=== PATIENT | female | born 1955 | race African-American/Black ===

== ENCOUNTER 2017-12-03 23:37 | Inpatient (IN) | payer OTHER ==
[~2017-12-03] VITALS: Ht 165.1 cm; Wt 71.5 kg
--- NOTE | ~2017-12-03 | S ---
[facility] [place] [address] SURGICAL PATH RPT PROCEDURE Name: FANNY REYES Room #: 242-P [facility] IN M.R.#: [id number] Admission: 12/04/17 Date of : 57 Discharge: 12/05/17 Report #: [id number] Path Case #: [id number] PATHOLOGY REPORT COLLECTION DATE: 12/05/2017 RECEIVED DATE: 12/05/2017 SUBMITTING PHYS: Dr. Varsha Bocanegra OTHER PHYS: Dr. Chloe Horn SPECIMEN(S) RECEIVED: A.Peripheral smear * * * * * * * * * * * * FINAL DIAGNOSIS: Peripheral blood smear: - Mild normocytic anemia and mild leukopenia with left-shifted granulocytes (see comment). COMMENT: Overall, the peripheral blood has mild normocytic anemia and mild leukopenia with left-shifted granulocytes. The platelet count is within the normal reference range. Platelet clumps are also noted. The etiology of the findings is unclear based entirely on slide review. Potential causes of normocytic anemia include anemia of chronic disease, treated and/or compensated by mineral deficiencies, acute blood loss, dilutional and primary bone marrow disorders. Potential causes of leukopenia include infections, drug reactions and primary bone marrow disorders. Correlation with clinical history and additional laboratory data is recommended. (CLW:kristin; 12/05/2017) PATHOLOGIST: Meredith Schulz M.D. REPORT ELECTRONICALLY SIGNED BY: Meredith Schulz M.D. DATE/TIME: 12/05/2017 22:17 * * * * * * * * * * * * MICROSCOPIC DESCRIPTION: CBC Data (12/05/17): WBC 2,100 / uL, RBC 3.87, hemoglobin 11.1 g/dL, hematocrit 35.4%, MCV 91.4 fL, MCH 28.6 pg, MCHC 31.3 g/dL, RDW 14.0%. Platelet count 154,000 / uL. Manual WBC differential: segs 45%, bands 20%, lymphs 26%, eos 1%, and metas 8%. Peripheral Blood Smear: Cytomorphological examination of the Wong's stained peripheral blood smear is limited by poor morphology and otherwise confirms the provided data. Red blood cells show mild normocytic anemia and are without significant anisopoikilocytosis. No schistocytes or [facility] [address] [place] [address] SURGICAL PATH RPT PROCEDURE Name: FANNY REYES Room #: 242-P [facility] IN M.R.#: [id number] Admission: 12/04/17 Date of : 57 Discharge: 12/05/17 Report #: [id number] Path Case #: [id number] microspherocytes are seen. White blood cells are mildly decreased in number. They are predominantly segmented neutrophils with reactive changes. There is a left shift with scattered metamyelocytes noted. No blasts or Re rods are seen on scanning. Lymphocytes are predominantly small, round, and mature-appearing with condensed chromatin and scant cytoplasm with admixed large granular lymphocytes and reactive-appearing lymphocytes. Monocytes are mature. Platelets are adequate in number and mainly normal in morphology with rare larger platelets noted. Rare platelet clumps are also seen. GROSS PATHOLOGY: Received are four peripheral blood smears (two Wong stained and two unstained) all labeled, Fanny Reyes CLINICAL HISTORY: This is a 62-year-old woman with anemia and leukopenia. Morphologic review of the peripheral blood smear is requested by the patient's physician. INITIAL CPT CODE(S): A; [place] Professional services performed by [facility] at [facility] [address], [place] [address] Technical services performed by [facility] at [address] [place] [address], [address], [place] [address]. FAX: Genna Tejada [facility] [address] [address] PHONE: [phone] DIRECTOR: Carlos Alberto Banegas M.D. * * * END OF REPORT * * *
--- NOTE | ~2017-12-03 | HC ---
[facility] [place] [address] [place] [address] CONSULTATION Name: JAGDISH COLLINS Room #: 242-P [facility] IN M.R.#: [id number] Admission: 12/04/17 Attend Phys: Chloe Roth Discharge: 12/05/17 Date of : 57 Report #: [id number] THIS REPORT FOR: //name// CC: CHITO Horn DATE OF SERVICE: 12/04/2017 REASON FOR CONSULTATION: Acute kidney injury. HISTORY OF PRESENT ILLNESS: This 62-year-old patient is new to our hospital and hospital system as far as I can tell. She was brought by ambulance late last night before midnight actually to the Emergency Room here with malaise, nausea, vomiting and abdominal pain. She complained of severe obstipation and was noted by EMS to have hypotension with blood pressure recorded 56/28 and heart rate of 150 and this responded to IV fluids with improvement in her vitals. She was evaluated in the Emergency Room and found to have an apparent large bowel obstruction with dilated colon and was managed with oxygen and IV fluids and at some point early this morning while still in the Emergency Room underwent a cardiorespiratory arrest thought to be accompanied by vomiting and aspiration. There was a prolonged difficult resuscitation, transferred to the ICU where upon she has had severe shock requiring multiple pressors and fluids with severe metabolic and lactic acidosis and little in the way of urine output. PAST MEDICAL HISTORY: There is some history of kidney disease, possibly a remote ovarian tumor of some kind, as far as we can tell it was not a cancer. She has a prior history of hypertension, history of marked opioid dependence, chronic pain and implanted epidural pain related catheter and history of avascular necrosis of the femoral head. ALLERGIES: ALLERGIC TO NONSTEROIDALS. FAMILY HISTORY: Unobtainable. SOCIAL HISTORY: Old records apparently were obtained at some point, which included the fact that she is completely estranged from all family members and there is no accountable alliance party to help with decision making. HOME MEDICATIONS: Include lisinopril 40 mg daily, amlodipine 10 mg daily, Flexeril 10 mg t.i.d. p.r.n., Coreg 12.5 mg b.i.d., Synthroid 0.025 mg daily, aspirin 81 mg daily, oxycodone 20 mg t.i.d., furosemide 40 mg daily, spironolactone 25 mg daily. PHYSICAL EXAMINATION: GENERAL: The patient is comatose. She is on hypothermia protocol. She is on hypothermia apparatus and making examination difficult. [address] [address] CONSULTATION Name: JAGDISH COLLINS Room #: 242-P [facility] IN [facility].#: [id number] Admission: 12/04/17 Attend Phys: Chloe Roth Discharge: 12/05/17 Date of : 57 Report #: [id number] HEENT: Pupils are not reactive. NEUROLOGIC: She is again completely comatose. CHEST: I can listen to sounds okay. HEART: Distant. ABDOMEN: Cannot really be examined. EXTREMITIES: Cool, nonedematous and pulses are diminished. LABORATORY DATA: Most recent laboratory data with more pending include hemoglobin of 6.4, white count of 6.2 and platelets of 150. Bands were 17% last night when she first came in and at that point, white count was 15.9, platelets 373. Initial chemistries first was evaluated before midnight last night, include sodium 141, potassium 3.9, chloride 108, bicarbonate 24, creatinine 1.9, BUN 33. LFTs were normal. Most recent chemistries available from 5 hours ago showed a serum CO2 of 16 and potassium of 6.1, creatinine of 2.7, AST of 1234, ALT of only 25, albumin 1.4 and this post arrest. Recent ABG drawn at 2:00 this afternoon include pH 7.045, pCO2 of 29, pO2 247, serum CO2 of 7.8 and lactate of 10. ASSESSMENT AND PLAN: Acute kidney injury. She had severe shock, a very prolonged arrest in the setting of what appeared to be a septic picture superimposed on bowel obstruction, now she is anuric, acidotic. She is on maximal doses of 4 or 5 pressors with a maintained borderline blood pressure and continuing ____ circulation despite copious fluid resuscitation. The difficulty with the case is that trying to perform CRRT or the type of procedure on this patient may be very difficult due to marked hypotension, on the other hand her acidosis is becoming completely refractory and she certainly can survive very long at this rate and I suspect her potassium will be up and her bicarbonate will be much better. She has been ordered to get some IV bicarbonate as well and this may further complicate issues. We will have to try to make some decisions regarding CRRT. We will follow her closely, but her prognosis obviously is grave at this point. <ELECTRONICALLY SIGNED> By: Arnaldo Wahl MD 12/07/17 1141 1512 190 Arnaldo Wahl MD /nt
--- NOTE | ~2017-12-03 | EKG ---
[place] [address] [facility] [place] [address] ELECTROCARDIOGRAM REPORT Name: JAGDISH COLLINS Room #: 242-P ADM IN M.R.#: [id number] Admission: 12/04/17 Attend Phys: Chato Horn MD Discharge: Date of : 57 Report #: [id number] THIS REPORT FOR: //name// [facility] ED Test Date: 2017-12-03 Test Time: 23:55:14 Pat Name: JAGDISH COLLINS Department: Room: 242 Gender: F Public Health Administrator: LAURENT : 1955 Requested By: Shayy House Order Number: [id number] MD: Mario Miller Measurements Intervals [place] Rate: 106 P: 62 MT: 164 QRS: 55 QRSD: 86 T: 260 QT: 276 QTc: 367 Interpretive Statements Sinus tachycardia Probable LVH with secondary repol abnrm No previous ECG available for comparison Electronically Signed On 12-04-2017 13:46:41 CDT by Mario Miller [email or web address] <ELECTRONICALLY SIGNED> By: Mario Miller MD, [facility] 12/04/17 1346 [id number] [id number] Mario Miller MD, FACC /EPI
--- NOTE | ~2017-12-03 | HC ---
[facility] [place] [address] CONSULTATION Name: JAGDISH COLLINS Room #: 242-P [facility] IN ..#: [id number] Admission: 12/04/17 Attend Phys: Chloe Roth Discharge: 12/05/17 Date of : 57 Report #: [id number] THIS REPORT FOR: //name// CC: CHITO Horn DATE OF SERVICE: 12/04/2017 ATTENDING PHYSICIAN: Chato Horn MD CONSULTATION REQUESTED BY: Chloe Roth MD REASON FOR CONSULTATION: Aspiration pneumonia. HISTORY OF PRESENT ILLNESS: The patient is a 62-year-old -British woman admitted through the Emergency Room with a history of malaise, vomiting, abdominal pain and inability to keep anything down. The patient undergoes CT scan of abdomen and pelvis and this revealed large bowel obstruction. The patient then suffered cardiorespiratory arrest, now in the intensive care unit on mechanical ventilator. Consequently, all information is gathered from review of current records, no information besides the one obtained in the Emergency Room. PAST MEDICAL HISTORY: Recent kidney disease diagnosed. MEDICATIONS: She is on lisinopril, amlodipine, cyclobenzaprine, carvedilol, levothyroxine, aspirin, p.r.n. oxycodone, docusate and spironolactone. DRUG ALLERGIES: NONSTEROIDAL ANTI-INFLAMMATORY DRUGS, PENTAZOCINE, IBUPROFEN, DOXYCYCLINE. MEDICATIONS: She is currently on chlorhexidine oral care, famotidine, normal saline 1000 mL every 8 hours, Levophed titration, Zosyn 3.375 grams IV every 6 hours, propofol sedation, p.r.n. acetaminophen, p.r.n. ondansetron, p.r.n. morphine sulfate. PAST SOCIAL HISTORY: Unable to obtain. FAMILY HISTORY: Unable to obtain. REVIEW OF SYSTEMS: Unable to obtain. PHYSICAL EXAMINATION: GENERAL: A well-developed unresponsive woman. VITAL SIGNS: Temperature 100.1, pulse 120, respirations 18, BP 118/72. The patient is intubated on mechanical ventilator. [facility] [address] [place] [address] CONSULTATION Name: JAGDISH COLLINS Room #: 242-P [facility] IN M.R.#: [id number] Admission: 12/04/17 Attend Phys: Chloe Roth Discharge: 12/05/17 Date of : 57 Report #: [id number] HEENMT: Head normocephalic, atraumatic. Pupils dilated, nonresponsive, clouding of lenses. Bilateral arcus cornealis. Mouth: Unable to examine because of orotracheal intubation. NECK: Supple. LUNGS: Basilar crackles during intubation and resuscitation. The patient is said to have large amount of bile colored material aspirated from the lungs. ABDOMEN: Tympanitic, mildly distended and obviously not tender because the patient is unresponsive. PELVIC AND RECTAL: Deferred. EXTREMITIES: No clubbing, cyanosis. NEUROLOGIC: The patient totally unresponsive. LABORATORY DATA: Sodium 142, potassium 4.2, CO2 of 18, BUN 38, creatinine 2.4, albumin 2.3 g/dL. White blood cell count on admission 15,900, today 7500, hemoglobin 12.3 g/dL, platelets 373,000. The admission CBC has revealed 69% segmented neutrophils, 17% bands. ABGs obtained revealed pH 7.97, pCO2 of 61, pO2 100, bicarbonate 15.8, lactate 8.93. This set of gases done on 100% O2. Nasopharyngeal smear negative for influenza A and B. RADIOLOGY EVALUATION: The admission chest x-ray negative. CT scan of abdomen and pelvis has revealed large bowel distention and air fluid levels, fatty liver. Findings on omental fat compatible with peritoneal carcinomatosis. Chronic changes, both lung bases. ASSESSMENT: 1. Status post cardiorespiratory arrest. 2. Aspiration pneumonia. 3. Respiratory failure with mix lactic and metabolic acidosis. 4. Acute kidney injury. Question superimposed on chronic kidney disease. 5. Possible large bowel obstruction, rule out peritoneal carcinomatosis. SUGGESTIONS: Recommend decreased dose of Zosyn to every 8 hours. MRSA screen. If this is positive, we will initiate vancomycin per Dr. Roth. Thank you for requesting our suggestions in the care of your patient. <ELECTRONICALLY SIGNED> By: Jacob Plata MD 12/13/17 1026 1116 1644 Jacob Plata MD /nt
--- NOTE | ~2017-12-03 | 2DMMODE ---
[facility] [place] [address] 2 D/M-MODE ECHOCARDIOGRAM Name: JAGDISH COLLINS Room #: 242-P ADM IN M.R.#: [id number] Admission: 12/04/17 Attend Phys: Chloe Townsend Discharge: Date of : 57 Date of Service: 12/05/17 0854 Report #: [id number] THIS REPORT FOR: //name// APPROVED REPORT Study performed: 12/05/2017 07:57:42 EXAM: Comprehensive 2D, Doppler, and color-flow Echocardiogram Patient Location: ICU Room #: 242 Status: routine BSA: 1.78 HR: 84 bpm BP: 101/76 mmHg Other Information Study Quality: Good Indications Abnormal ECG 2D Dimensions RVDd: 25.56 mm LVEF(%): 20.97 (>50%) IVSd: 12.18 (7-11mm) LVOT Diam: 18.01 (18-24mm) LVDd: 43.14 mm PWd: 12.32 (7-11mm) Ascending Ao: 31.72 (22-36mm) LVDs: 39.06 (25-40mm) Aortic Root: 26.38 mm IVC: 18.00 mm Powell's LVEF: 20.97 % Volumes Left Atrial Volume (Systole) Single Plane 4CH: 71.98 mL Single Plane 2CH: 71.93 mL LA ESV Index: 44.00 mL/m2 Aortic Valve AoV Peak Mukul.: 0.89 m/s AO Peak Gr.: 3.15 mmHg LVOT Max P.01 mmHg LVOT Max V: 0.71 m/s HIEU Vmax: 2.04 cm2 Mitral Valve MV Decel. Time: 137.46 ms MV E Max Mukul.: 1.26 m/s IVRT: 214.53 ms [facility] [place] [address] 2 D/M-MODE ECHOCARDIOGRAM Name: JAGDISH COLLINS Room #: 242-P [facility] IN M.R.#: [id number] Admission: 12/04/17 Attend Phys: Chloe Townsend Discharge: Date of : 57 Date of Service: 12/05/17 0854 Report #: [id number] Pulmonary Valve PV Peak Mukul.: 0.63 m/s PV Peak Gr.: 1.59 mmHg Tricuspid Valve TR Peak Mukul.: 2.09 m/s RAP Estimate: 10.00 mmHg TR Peak Gr.: 17.55 mmHg PA Pressure: 28.00 mmHg Left Ventricle The left ventricle is normal size. Mild concentric left ventricular hypertrophy. Left ventricular systolic function is severely decreased. LVEF is 25%. This study is not technically sufficient to allow evaluation of the LV diastolic function. Right Ventricle The right ventricle is normal size. Right ventricle is hypokinetic. Atria Left atrium is moderately dilated. The right atrium size is normal. Aortic Valve Aortic valve leaflets are mildly thickened. No aortic regurgitation is present. There is no aortic valvular stenosis. Mitral Valve Mitral valve leaflets are moderately thickened. Moderate to moderately severe mitral regurgitation No evidence of mitral valve stenosis. Tricuspid Valve The tricuspid valve is normal in structure. Trace tricuspid regurgitation. PAP is estimated at 28 mmHg. Pulmonic Valve The pulmonary valve is normal in structure. Trace pulmonic regurgitation. Great Vessels The aortic root is normal in size. IVC is normal in size. Pericardium There is no pericardial effusion. [facility] [place] [address] 2 D/M-MODE ECHOCARDIOGRAM Name: JAGDISH COLLINS Room #: 242-P ADM IN .R.#: [id number] Admission: 12/04/17 Attend Phys: Chloe Townsend Discharge: Date of : 57 Date of Service: 12/05/1754 Report #: [id number] <Conclusion> Left ventricular systolic function is severely decreased. LVEF is 25%. Left atrium is moderately dilated. Aortic valve leaflets are mildly thickened. No aortic valvular stenosis or insufficiency. Mitral valve leaflets are moderately thickened. Moderate to moderately severe mitral regurgitation Trace tricuspid regurgitation. Pulmonary artery pressure estimated at 28 mmHg. There is no pericardial effusion. <ELECTRONICALLY SIGNED> By: Mario Miller MD, [facility] 12/05/1754 0854 Mario Miller MD, FACC /INF
--- NOTE | ~2017-12-03 | EKG ---
[place] [address] [facility] [place] [address] ELECTROCARDIOGRAM REPORT Name: JAGDISH COLLINS Room #: 242-P ADM IN M.R.#: [id number] Admission: 12/04/17 Attend Phys: Chloe Roth Discharge: Date of : 57 Report #: [id number] THIS REPORT FOR: //name// [facility] Test Date: 2017-12-05 Test Time: 07:23:38 Pat Name: JAGDISH COLLINS Department: Room: 242 Gender: F Dry Ice Maker: Bhupinder WARREN : 1955 Requested By: Arnaldo Parks Order Number: [id number] MD: Mario Miller Measurements Intervals [place] Rate: 85 P: 40 FL: 172 QRS: 32 QRSD: 150 T: 202 QT: 449 QTc: 534 Interpretive Statements Sinus rhythm Left bundle branch block Compared to ECG 12/03/2017 23:55:14 Left bundle branch block is now present Sinus tachycardia no longer present Electronically Signed On 12-05-2017 8:32:23 CDT by Mario Miller [email or web address] <ELECTRONICALLY SIGNED> By: Mario Miller MD, [facility] 12/05/17 0832 0723 0723 Mario Miller MD, [facility] /EPI
--- NOTE | ~2017-12-03 | HC ---
[facility] [place] [address] CONSULTATION Name: JAGDISH COLLINS Room #: 242-P [facility] IN M.R.#: [id number] Admission: 12/04/17 Attend Phys: Chloe Roth Discharge: 12/05/17 Date of : 57 Report #: [id number] THIS REPORT FOR: //name// CC: CHITO Roth DATE OF SERVICE: 12/05/2017 HISTORY OF PRESENT ILLNESS: The patient is a 62-year-old female patient who was seen last night as well as this morning. This patient's Neurology consultation was requested to evaluate the patient for hypoxic encephalopathy. This patient has numerous notes in the chart from multiple physicians. She presented with GI symptom and subsequently had a cardiopulmonary arrest. She is unresponsive and according to the nurses, she is not on any sedation. REVIEW OF SYSTEMS: Indicate that she has a prior history of ovarian tumor. When she came to Emergency Room, it looks like she had hypotension. Now, the patient is unresponsive. No seizure activity has been noticed. No family was there last night and no family is there now. Nurses tell me the patient is on maximum pressor. She has shock liver, her kidney function is down, troponin is high. I carried out 14-point review of systems from the records and it is significant as described above. PAST MEDICAL HISTORY: Positive for ovarian tumor. FAMILY HISTORY: Unavailable. SOCIAL HISTORY: Unavailable because no family member is here. From the record, it looks like there is no history of alcohol or tobacco abuse. PHYSICAL EXAMINATION: Examination yesterday and today was limited. She has no response of any kind. Pupils are dilated, but may be minimally reactive to the night last night, I did not see much reaction this morning, even the last night reaction was questionable. She has no doll's eye movement. She is not stable enough to go for any testing. She is moderately well-built individual. She is requiring maximum pressor support. She is intubated and she is on vent. Blood pressure is 120/87, temperature is 32.9. LABORATORY DATA: Indicate a white count of 3.8, platelet count is 138 and she has numerous blood abnormality including liver and kidney. 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 It will require some time to fully prognosticate her. We will try to warm up this patient this evening and get an EEG done tomorrow morning, then we need to decide whether the patient is fit to go for CT scan or not. [facility] [address] [place] [address] CONSULTATION Name: JAGDISH COLLINS Room #: 242-P [facility]#: [id number] Admission: 12/04/17 Attend Phys: Chloe Roth Discharge: 12/05/17 Date of : 57 Report #: [id number] RECOMMENDATIONS: 1. We will get an EEG done once the patient is warmed, probably tomorrow morning. 2. Sometime along the line, would like to get the patient a noncontrast CT of the head. 3. Further workup and prognostication will depend upon the above testing. Thank you very much for this referral and we will follow the patient along with you. <ELECTRONICALLY SIGNED> By: Tariq Pickard MD 12/15/17 1355 1622 1803 Tariq Pickard MD /nt
--- NOTE | ~2017-12-03 | HC ---
[facility] [place] [address] CONSULTATION Name: JAGDISH COLLINS Room #: 242-P [facility] IN M.R.#: [id number] Admission: 12/04/17 Attend Phys: Chloe Roth Discharge: 12/05/17 Date of : 57 Report #: [id number] THIS REPORT FOR: //name// CC: CHITO Horn REASON FOR CONSULTATION: The patient is a 62-year-old woman with evidence of large bowel obstruction versus constipation and ileus. HISTORY OF PRESENT ILLNESS: This patient is seen in the Intensive Care Unit. She is currently poorly responsive, intubated and on a ventilator. I am unable to obtain any history whatsoever from the patient. The patient presented to the Emergency Room last evening. She presented with complaints of malaise, vomiting, abdominal pain and intolerance to oral intake. She also apparently reported she has not had a bowel movement in 2 weeks. She has a history of chronic kidney disease, but reported she does not require dialysis. According to the Emergency Room note, she denied fever, weakness or dizziness. She did report to the Emergency Room that she had a large ovarian tumor removed in about 1999 and reported that it was benign. There were no other abdominal surgeries according to the ER note. Upon EMS arrival to her home, she had a blood pressure 56/20 with a heart rate of 151. She was given IV fluid en route. Oxygen was given as well. She underwent evaluation which included a CT abdomen and pelvis. She is known to have a large amount of stool in her colon with proximal colon dilated up to 9 cm. There is an abrupt change in the mid sigmoid colon. There is a question of "early peritoneal carcinomatosis." A small amount of ascites was noted as well. She also had laboratory studies and she initially had a white count of 15.9 with hemoglobin 12.8, platelet count 373,000. INR is 1.1. Chemistry revealed sodium 141. Her potassium was initially 3.9. Carbon dioxide was 24, creatinine was 1.9 and BUN was 33. Bilirubin was 0.9, AST was initially 11, but since her event this morning, it has climbed at 1234, ALT was 14 and on repeat was 25, alkaline phosphatase of 192 which has risen to 263. Albumin was initially 2.3 and has dropped to 1.4, lipase was normal. Her procalcitonin was elevated at 16.23. The patient was found today to be nonresponsive, pulse was lost and CPR was initiated. She was resuscitated, intubated and brought to the Intensive Care Unit. She is currently in Intensive Care Unit. She is hypotensive with systolic blood pressures in the 60s. I am told that a KUB was just done and there was no evidence of free air. The report is not yet available in the computer system. She has been seen by Dr. Doherty who felt that she was not a candidate for surgical intervention at this time. There was a question of "decompression" with flexible sigmoidoscopy." [address] [address] CONSULTATION Name: JAGDISH COLLINS Room #: 242-P [facility] IN M.R.#: [id number] Admission: 12/04/17 Attend Phys: Chloe Roth Discharge: 12/05/17 Date of : 57 Report #: [id number] PAST MEDICAL HISTORY: Obtained from the medical records includes chronic kidney disease, high blood pressure, benign ovarian tumor resected, knee surgery, apparently back spasms as well. ALLERGIES: Reported allergies include NONSTEROIDALS, PENTAZOCINE, IBUPROFEN and DOXYCYCLINE. HOME MEDICINES: Listed include amlodipine, aspirin, Coreg, Flexeril, docusate, furosemide, levothyroxine, lisinopril, oxycodone, and Aldactone. FAMILY HISTORY: No family available, unknown. SOCIAL HISTORY: Unknown. REVIEW OF SYSTEMS: Unable to obtain as the patient is not able to respond at this time. PHYSICAL EXAMINATION: GENERAL: The patient is a well-developed, well-nourished -[place] woman. She is currently intubated in the Intensive Care Unit. She is not restless at this time. VITAL SIGNS: Currently blood pressure systolic in the 60s, low-grade temperature to 100.0 earlier today. HEENT: Sclerae anicteric. She is intubated orally. NECK: Supple. CHEST: Clear anteriorly. HEART: Tachycardic, S1, S2, soft murmur. ABDOMEN: Somewhat full, but it is not tight or rigid, is soft in all quadrants. I did not appreciate hepatosplenomegaly. Occasional bowel sound is heard. RECTAL: Not done. EXTREMITIES: Without cyanosis, clubbing, edema. ASSESSMENT: 1. Dilated colon, questionably chronic versus acute, benign abdomen at this time. 2. Cardiac arrest, resuscitated. 3. Respiratory failure, on ventilator. 4. Abnormal liver function studies consistent with shock liver. 5. History of benign ovarian tumor with questionable early peritoneal carcinomatosis. 6. Chronic kidney disease. 7. Chronic constipation. 8. High blood pressure. COMMENT: The patient is critically ill at this point in time. She is hypotensive and pressors are being started. Overall, her abdominal exam is [facility] [address] [place] [address] CONSULTATION Name: JAGDISH COLLINS Room #: 242-P [facility] IN M.R.#: [id number] Admission: 12/04/17 Attend Phys: Chloe Roth Discharge: 12/05/17 Date of : 57 Report #: [id number] relatively benign. I do not see the role for attempt at decompression in her colon at this point. RECOMMENDATIONS: 1. Continue ICU care. 2. Continue NG suctioning. 3. Monitor liver function studies as well as other labs. 4. Continue to monitor abdomen and if needed in the clinical situation allows, consider flexible sigmoidoscopy to decompress the colon, but at this point in time, the patient is too unstable for that examination. <ELECTRONICALLY SIGNED> By: Arsenio Killian MD 12/08/17 1334 1301 1815 Arsenio Killian MD /nt
--- NOTE | ~2017-12-03 | HC ---
[facility] [place] [address] CONSULTATION Name: JAGDISH COLLINS Room #: 242-P [facility] IN M.R.#: [id number] Admission: 12/04/17 Attend Phys: Chloe Roth Discharge: 12/05/17 Date of : 57 Report #: [id number] THIS REPORT FOR: //name// CC: CHITO Horn DATE OF SERVICE: 12/04/2017 CARDIOLOGY CONSULT HISTORY OF PRESENT ILLNESS: The patient is a 62-year-old female who was admitted last night to the Emergency Room. She apparently has a history of some chronic abdominal pain, abdominal distention and obstipation with no bowel movement despite various measures for a couple of weeks. Review of the records is that she is now intubated after a code blue this morning. Apparently, did not lose a pulse and then became PEA and subsequently intubated. Severely anemic with a hemoglobin of 6 and being transfused now currently. Also requiring maximal dose pressors. There is no family as apparently there is a drug and alcohol abuse issue and she has been estranged from all family members. I am not really able to obtain any other history with the exception of there is from the records a history of ovarian cancer and this is felt possibly to be some recurrence, neoplastic or inflammatory stricture of the sigmoid colon. This is consistent with a peritoneal adhesion. Also has a history of avascular necrosis, some tachycardia, hypertension, perhaps some heart failure based on her medications. Her reported home meds were Zestril 40, amlodipine 10, Flexeril 10, Coreg 12.5 b.i.d., levothyroxine, baby aspirin, oxycodone, Lasix and Aldactone 25. One of the records suggests she is followed by Cardiology. We do not have those records. ADDITIONAL PAST MEDICAL HISTORY: Positive for some chronic kidney disease and severe back pain, back spasm and knee surgery. SOCIAL HISTORY: Apparently estranged from the family due to alcohol, tobacco and drug abuse, not currently smoking. REVIEW OF SYSTEMS: Not obtainable. FAMILY HISTORY: Not obtainable. Her EKG pre-code was exhibiting sinus rhythm, LVH. I will obtain an EKG. LABORATORY DATA: Potassium is 4.1, sodium 143, creatinine is 3.0, came in at 1.9, glucose 120s. Lipase elevated, SGOT 1234, alkaline phosphatase 263. Mag 2.7. Troponin 0.04, negative x 2. BNP 1800. H and H 6.4 and 23.1, white count 6.2[place] [address] CONSULTATION Name: JAGDISH COLLINS Room #: [facility] IN [facility].#: [id number] Admission: 12/04/17 Attend Phys: Chloe Roth Discharge: 12/05/17 Date of : 57 Report #: [id number] PHYSICAL EXAMINATION: GENERAL: She is not responsive. She is intubated. She is on 4 pressors and receiving a unit of blood, vasopressin, dopamine, Levophed and epinephrine. Vasopressin has just been discontinued with a pressure of 120s, pulse is 80s. There appears to be sinus. HEENT: Eyes, no xanthelasmas. Pharynx is dry mucous membranes. She is intubated. NECK: Has preserved upstrokes. LUNGS: Clear anteriorly. CARDIAC: S1, S2. There is an S4 noted. ABDOMEN: Slightly distended. EXTREMITIES: There is a trace of edema. I cannot palpate the distal pulses. NEUROLOGIC: She is unresponsive. She is not being sedated. She is status post code this a.m. <ELECTRONICALLY SIGNED> By: Arnaldo Parks MD, FACC 12/08/17 1539 1843 [id number] Arnaldo Parks MD, FACC /nt
--- NOTE | ~2017-12-03 | HC ---
[facility] [place] [address] CONSULTATION Name: JAGDISH COLLINS Room #: 242-P [facility] IN M.R.#: [id number] Admission: 12/04/17 Attend Phys: Chloe Roth Discharge: 12/05/17 Date of : 57 Report #: [id number] THIS REPORT FOR: //name// CC: CHITO Horn DATE OF SERVICE: 12/04/2017 ADDENDUM ASSESSMENT: 1. Status post code blue this a.m. with emergent intubation. 2. 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 3. Hypotension secondary to above. 4. Acute on chronic renal failure. 5. History of suspected coronary artery disease or cardiomyopathy by current medications, (although I do not have those records). 6. Severe acute blood loss anemia, hemoglobin is 6.4. RECOMMENDATIONS AND PLAN: We will obtain EKG. We will repeat an echo in the morning. We will continue with pressor support. This situation does not look favorable. There is no family that apparently, she is estranged from all family members. We are continuing on with full supportive measures at this time. Transfusion 2 units, we will obtain. It does not look to be necessary ischemic in nature, would be helpful to get at least cardiac records from , although I suspect there is some sort of underlying cardiomyopathy, possibly hypertensive cardiomyopathy based on the medications and/or underlying ischemia. I will continue to follow with you. We will deal with pressors and wean slowly as tolerated. Urine output is slightly increased, but certainly was very marginal. Other consultants are on this case in addition. We will follow with you. <ELECTRONICALLY SIGNED> By: Arnaldo Parks MD, FACC 12/08/17 1539 1846 [id number] Arnaldo Parks MD, FACC /nt
[~2017-12-03 23:37] MED LIST: ASPIRIN81 M2; DIAZEPAM 10 MG10 M1; FERROUS SULFAT325 M1; LEVAQUIN 750 M750 MG; LEVOTHYROXIN0.025 MG; NORVASC10 MG; OXYCODONE HCL20 M1 PO; POTASSIUM20 PO; PROTONIX 20 MG20 M1; VITAMIN D400 UNI1; VITAMINC500
[2017-12-03 23:38] VITALS: BP 117/68
[2017-12-03 23:54] LABS: HEMOGLOBIN 12.8 gm/dL (12.0-15.0); MCH 28.3 pg (26.0-34.0); MCV 88.5 fL (80.0-100.0); PLATELET COUNT 373 thou/uL (150-400); RBC 4.52 mil/uL (4.20-5.00); RDW 13.4 % (10.5-14.5); WBC 15.9 thou/uL (4.0-11.0)
[2017-12-04] VITALS (116 sets, daily range): BP systolic 46–163; BP diastolic 17–133
[2017-12-04 00:04] LABS: ANION GAP 9 mmol/L (7-16); BUN 33 mg/dL (7-18); CALCIUM 8.7 mg/dL (8.5-10.1); CHLORIDE 108 mmol/L (98-107); CO2 24 mmol/L (21-32); CREATININE 1.9 mg/dL (0.6-1.0); GLUCOSE 141 mg/dL (74-106); POTASSIUM 3.9 mmol/L (3.5-5.1); SODIUM 141 mmol/L (136-145)
[2017-12-04 00:13] LABS: ALBUMIN 2.3 g/dL (3.4-5.0); DIRECT BILIRUBIN 0.2 mg/dL (<0.1-0.3); LIPASE 71 U/L (73-393); MAGNESIUM 2.4 mg/dL (1.8-2.4); SGOT 16 U/L (15-37); TOTAL BILIRUBIN 0.7 mg/dL (<0.1-1.0); TOTAL PROTEIN 5.9 g/dL (6.4-8.2); TROPONIN-I < 0.04 ng/mL (<0.06)
[2017-12-04 00:15] LABS: SGPT < 6 U/L (30-65)
[2017-12-04 00:18] LABS: ABSOLUTE NEUTROPHILS 13.7 thou/uL (1.4-8.2)
[2017-12-04] MEDS ORDERED: LISINOPRIL40 MG PO (00:45)
[2017-12-04] MEDS ORDERED: AMLODIPINE BESY10 MG PO (00:46)
[2017-12-04] MEDS ORDERED: FLEXERIL PO (00:47)
[2017-12-04] MEDS ORDERED: CARVEDILOL12.5 MG PO (00:48)
[2017-12-04] MEDS ORDERED: COLACE100 MG PO (00:50)
[2017-12-04] MEDS ORDERED: LASIX 40 MG TAB40 M2 PO (00:52)
[2017-12-04] MEDS ORDERED: ALDACTONE25 MG PO (00:53)
[2017-12-04 06:46] LABS: HEMATOCRIT 39.2 % (37.0-47.0); HEMOGLOBIN 12.3 gm/dL (12.0-15.0); MCH 28.3 pg (26.0-34.0); MCHC 31.3 g/dL (28.0-37.0); MCV 90.3 fL (80.0-100.0); RBC 4.34 mil/uL (4.20-5.00); WBC 7.5 thou/uL (4.0-11.0)
[2017-12-04 07:02] LABS: CALCIUM 8.2 mg/dL (8.5-10.1); CREATININE 2.4 mg/dL (0.6-1.0); POTASSIUM 4.2 mmol/L (3.5-5.1)
[2017-12-04 07:03] LABS: INR 1.1; PROTIME 11.5 Seconds (9.3-11.4)
[2017-12-04 09:38] LABS: BE(vivo) -17.6 mmol/L (-2 to +3); HCO3 13.9 mmol/L (22.0-26.0); PCO2 61.4 mmHg (35.0-45.0); PO2 100.4 mmHg (80.0-100.0); sO2 93.1 % (92.0-98.0)
[2017-12-04 09:39] LABS: pH 6.972 (7.360-7.450)
[2017-12-04 11:26] LABS: ABSOLUTE NEUTROPHILS 5.6 thou/uL (1.4-8.2); BASOPHILS 0.2 % (0.0-2.0); EOSINOPHILS 1.1 % (0.0-3.0); HEMATOCRIT 32.3 % (37.0-47.0); LYMPHOCYTES 21.1 % (24.0-44.0); MCH 29.2 pg (26.0-34.0); MCHC 31.4 g/dL (28.0-37.0); MCV 93.2 fL (80.0-100.0); MONOCYTES 2.8 % (1.0-8.0); POLYS 74.8 % (36.0-66.0); RBC 3.46 mil/uL (4.20-5.00); RDW 14.2 % (10.5-14.5); WBC 7.5 thou/uL (4.0-11.0)
[2017-12-04 11:30] LABS: CALCIUM 7.6 mg/dL (8.5-10.1); CREATININE 2.7 mg/dL (0.6-1.0)
[2017-12-04 11:33] LABS: HEMOGLOBIN 10.1 gm/dL (12.0-15.0); PLATELET COUNT 236 thou/uL (150-400)
[2017-12-04 11:40] LABS: APTT 68.6 Seconds (24.5-32.8); FIBRINOGEN 214.8 mg/dL (210-360)
[2017-12-04 11:41] LABS: ALBUMIN 1.4 g/dL (3.4-5.0); POTASSIUM 6.1 mmol/L (3.5-5.1); TOTAL BILIRUBIN 0.9 mg/dL (<0.1-1.0); TOTAL PROTEIN 4.1 g/dL (6.4-8.2)
[2017-12-04 13:40] LABS: URINE BLOOD NEGATIVE (Negative); URINE CLARITY CLEAR; URINE COLOR BROWN; URINE GLUCOSE-RANDOM* NEGATIVE (Negative); URINE KETONES TRACE (Negative); URINE LEUKOCYTES-REFLEX NEGATIVE (Negative); URINE PROTEIN (DIPSTICK) 1+ (Negative); URINE SPECIFIC GRAVITY 1.015 (1.005-1.035)
[2017-12-04 13:42] LABS: URINE NITRITE-REFLEX POSITIVE (Negative)
[2017-12-04 13:43] LABS: ICTOTEST (BILI CONFIRMATORY) Negative (Negative); URINE BILIRUBIN NEGATIVE (Negative)
[2017-12-04 13:55] LABS: CASTS None Seen /LPF (None Seen); CRYSTALS None Seen /LPF (None Seen); SQUAMOUS 0-3 Few /LPF (0-3)
[2017-12-04 13:56] LABS: BACTERIA-REFLEX 1-9 Few /HPF (None Seen); URINE RBC None Seen /HPF (0-2); URINE WBC-REFLEX None Seen /HPF (0-5)
[2017-12-04 14:05] LABS: BE(vivo) -21.4 mmol/L (-2 to +3); HCO3 7.8 mmol/L (22.0-26.0); PCO2 29.2 mmHg (35.0-45.0); PO2 247.4 mmHg (80.0-100.0); pH 7.045 (7.360-7.450); sO2 99.2 % (92.0-98.0)
[2017-12-04 14:37] LABS: BASOPHILS 0.2 % (0.0-2.0); EOSINOPHILS 0.2 % (0.0-3.0); HEMATOCRIT 23.1 % (37.0-47.0); LYMPHOCYTES 13.5 % (24.0-44.0); MCHC 27.9 g/dL (28.0-37.0); MONOCYTES 6.5 % (1.0-8.0); POLYS 79.6 % (36.0-66.0); RBC 2.22 mil/uL (4.20-5.00); RDW 15.5 % (10.5-14.5); WBC 6.2 thou/uL (4.0-11.0)
[2017-12-04 14:38] LABS: MCV 103.9 fL (80.0-100.0); PLATELET COUNT 150 thou/uL (150-400)
[2017-12-04 14:40] LABS: HEMOGLOBIN 6.4 gm/dL (12.0-15.0)
[2017-12-04 15:03] LABS: ANISOCYTOSIS 1+
[2017-12-04 15:04] LABS: POLYCHROMASIA OCCASIONAL
[2017-12-04 15:23] LABS: ALBUMIN 1.4 g/dL (3.4-5.0); CALCIUM 7.2 mg/dL (8.5-10.1)
[2017-12-04 15:25] LABS: MAGNESIUM 2.7 mg/dL (1.8-2.4); POTASSIUM 4.1 mmol/L (3.5-5.1); TROPONIN-I 0.04 ng/mL (<0.06)
[2017-12-04 16:40] LABS: BE(vivo) -18.7 mmol/L (-2 to +3); HCO3 10.6 mmol/L (22.0-26.0); PCO2 VENOUS 38.2 mmHg (41.0-51.0)
[2017-12-04 19:18] LABS: BE(vivo) -17.9 mmol/L (-2 to +3); HCO3 10.2 mmol/L (22.0-26.0); PCO2 32.1 mmHg (35.0-45.0); PO2 197.7 mmHg (80.0-100.0)
[2017-12-04 19:19] LABS: pH 7.118 (7.360-7.450)
[2017-12-04 21:51] LABS: BE(vivo) -16.8 mmol/L (-2 to +3); HCO3 11.3 mmol/L (22.0-26.0); PCO2 34.8 mmHg (35.0-45.0); PO2 148.3 mmHg (80.0-100.0); sO2 98.2 % (92.0-98.0)
[2017-12-04 21:52] LABS: pH 7.129 (7.360-7.450)
[2017-12-04 22:15] LABS: CALCIUM 6.3 mg/dL (8.5-10.1); CREATININE 2.7 mg/dL (0.6-1.0)
[2017-12-04 22:23] LABS: MAGNESIUM 2.3 mg/dL (1.8-2.4); TROPONIN-I 0.37 ng/mL (<0.06)
[2017-12-05] VITALS (78 sets, daily range): BP systolic 39–163; BP diastolic 11–107
[2017-12-05 01:31] LABS: HEMATOCRIT 35.4 % (37.0-47.0); MCH 28.6 pg (26.0-34.0); MCHC 31.3 g/dL (28.0-37.0); RBC 3.87 mil/uL (4.20-5.00); WBC 2.1 thou/uL (4.0-11.0)
[2017-12-05 01:53] LABS: HEMOGLOBIN 11.1 gm/dL (12.0-15.0)
[2017-12-05 01:54] LABS: MCV 91.4 fL (80.0-100.0)
[2017-12-05 04:09] LABS: ALBUMIN 1.1 g/dL (3.4-5.0); CALCIUM 6.2 mg/dL (8.5-10.1); CREATININE 2.7 mg/dL (0.6-1.0); DIRECT BILIRUBIN 0.6 mg/dL (<0.1-0.3); MAGNESIUM 2.3 mg/dL (1.8-2.4); POTASSIUM 3.9 mmol/L (3.5-5.1); TOTAL PROTEIN 3.5 g/dL (6.4-8.2)
[2017-12-05 04:19] LABS: HEMATOCRIT 34.4 % (37.0-47.0); MCH 29.1 pg (26.0-34.0); RBC 3.78 mil/uL (4.20-5.00); RDW 14.5 % (10.5-14.5)
[2017-12-05 04:21] LABS: TROPONIN-I 0.79 ng/mL (<0.06)
[2017-12-05 05:35] LABS: BE(vivo) -19.8 mmol/L (-2 to +3); HCO3 8.7 mmol/L (22.0-26.0); PCO2 29.5 mmHg (35.0-45.0); PO2 72.5 mmHg (80.0-100.0); sO2 88.4 % (92.0-98.0)
[2017-12-05 05:36] LABS: pH 7.087 (7.360-7.450)
[2017-12-05 06:23] LABS: ABSOLUTE NEUTROPHILS 1.4 thou/uL (1.4-8.2); LARGE PLATELETS OCCASIONAL; PLATELET COUNT 154 thou/uL (150-400)
[2017-12-05 06:24] LABS: ANISOCYTOSIS SLIGHT; MACROCYTES SLIGHT
[2017-12-05 16:28] LABS: METAMYELOCYTES 8 %
[2017-12-05 17:23] LABS: BE(vivo) -32.9 mmol/L (-2 to +3); HCO3 2.6 mmol/L (22.0-26.0); PCO2 25.6 mmHg (35.0-45.0); PO2 144.9 mmHg (80.0-100.0); pH 6.626 (7.360-7.450); sO2 93.6 % (92.0-98.0)
== END 2017-12-05 19:16 | DRG 208 ==
LOC: ER 23:37 → EROBS 12-04 02:37 → ICU 12-04 02:37 → 3W 12-04 03:25 → ICU 12-04 10:16
PROVIDERS: Emergency Medicine; Hospitalist; Internal Medicine Nephrology; Internal Medicine Pulmonary Disease; Nurse Practitioner Family
PROC: 5A1945Z Respiratory Ventilation, 24-96 Consecutive Hours (ICD-10-PCS; principal; 2017-12-04)
PROC: 30233N1 Transfusion of Nonautologous Red Blood Cells into Peripheral Vein, Percutaneous Approach (ICD-10-PCS; 2017-12-04)
PROC: 0BH17EZ Insertion of Endotracheal Airway into Trachea, Via Natural or Artificial Opening (ICD-10-PCS; 2017-12-04)
PROC: 5A12012 Performance of Cardiac Output, Single, Manual (ICD-10-PCS; 2017-12-05)
PROC: 02HV33Z Insertion of Infusion Device into Superior Vena Cava, Percutaneous Approach (ICD-10-PCS; 2017-12-05)
PROC: 5A1D90Z Performance of Urinary Filtration, Continuous, Greater than 18 hours Per Day (ICD-10-PCS; 2017-12-05)
DX: J96.01 Acute respiratory failure with hypoxia (principal); J69.0 Pneumonitis due to inhalation of food and vomit; K72.00 Acute and subacute hepatic failure without coma; G93.40 Encephalopathy, unspecified; N17.9 Acute kidney failure, unspecified; K56.609 Unspecified intestinal obstruction, unspecified as to partial versus complete obstruction; D62 Acute posthemorrhagic anemia; G93.1 Anoxic brain damage, not elsewhere classified; C78.6 Secondary malignant neoplasm of retroperitoneum and peritoneum; E46 Unspecified protein-calorie malnutrition; E86.0 Dehydration; N18.9 Chronic kidney disease, unspecified; K59.09 Other constipation; G89.29 Other chronic pain; M54.9 Dorsalgia, unspecified; I95.9 Hypotension, unspecified; D69.6 Thrombocytopenia, unspecified; I12.9 Hypertensive chronic kidney disease with stage 1 through stage 4 chronic kidney disease, or unspecified chronic kidney disease; E86.1 Hypovolemia; Z86.74 Personal history of sudden cardiac arrest; Z87.891 Personal history of nicotine dependence; Z79.899 Other long term (current) drug therapy; Z88.1 Allergy status to other antibiotic agents; Z88.6 Allergy status to analgesic agent; Z68.26 Body mass index [BMI] 26.0-26.9, adult
CPT/HCPCS: 10078; 27000; 32110